=== PATIENT | male | born 1985 | race Caucasian/White ===

== ENCOUNTER 2019-09-14 14:27 | Emergency (ER) | payer OTHER ==
[~2019-09-14] VITALS: Ht 177.8 cm; Wt 95.0 kg
[2019-09-14 14:49] VITALS: BP 124/78
--- NOTE | 2019-09-14 15:40 | NUR ---
PT HERE WITH C/O LOWER BACK PAIN S/P LIFTING HEAVY OBJECT APPROX. 1 WEEK AGO.
[2019-09-14] MEDS ORDERED: KETOROLAC 30 MG/1 ML ONE (15:44)
--- NOTE | 2019-09-14 15:47 | NUR ---
PT MEDICATED PER ORDER.
[2019-09-14] MEDS ORDERED: KETOROLAC 30 MG/1 ML IM ONE (16:00)
--- NOTE | 2019-09-14 16:03 | NUR ---
Patient/Caregiver given discharge instructions and they have confirmed that they understand the instructions. Patient ambulatory with steady gait.
== END 2019-09-14 16:05 | disposition home or self-care (01) ==
LOC: ED 15:29
DX: S39.012A Strain of muscle, fascia and tendon of lower back, initial encounter (principal); X58.XXXA Exposure to other specified factors, initial encounter; Y93.89 Activity, other specified; Y92.89 Other specified places as the place of occurrence of the external cause; Y99.8 Other external cause status
CPT/HCPCS: 72110; 72220; 96372; 99283; J1885